=== PATIENT | female | born 1965 | race Hispanic/Latino ===

== ENCOUNTER 2020-05-23 10:34 | Outpatient (CLI) | payer BC ==
[2020-05-24 06:46] LABS: SARS-CoV-2 PCR by NAA Not Detected (NotDetected)
== END 2020-05-23 10:35 | disposition home or self-care (01) ==
LOC: LABBT 10:34
PROVIDERS: ATTEND Ophthalmology Retina Specialist
DX: Z01.812 Encounter for preprocedural laboratory examination (principal); H54.7 Unspecified visual loss; Z20.822 Contact with and (suspected) exposure to COVID-19
CPT/HCPCS: 87635; U0003; U0005

== ENCOUNTER 2020-05-25 09:31 | Day surgery (SDC) | payer BC ==
[2020-05-24 09:11] VITALS: BMI 29.2
[~2020-05-25 09:31] MED LIST: EPINEPHrine 0.3 MG, Dextrose 50% 3 ML in Ophthalmic Irrigation Solution 500 ML IRR SCH; Fentanyl 100 MCG/2 ML VIAL ONE; Midazolam HCl 2 mg/2 ml Vial ONE
[2020-05-25] MEDS ORDERED: Phenylephrine 2.5% Ophth Soln 5 ML BOT ONE (09:51)
[2020-05-25] MEDS ORDERED: Cyclopentolate 1% Opth Drop 2 ML BOT ONE (09:51)
[2020-05-25] MEDS ORDERED: Maxitrol 0.1% Opth Oint 3.5 GM TUBE ONE (10:58)
[2020-05-25] MEDS ORDERED: Bupivacaine PF 0.75% SDV 10 ML ONE (10:58)
[2020-05-25] MEDS ORDERED: CEFAZOLIN 1 GM VIAL ONE (10:58)
[2020-05-25] MEDS ORDERED: Lidocaine 4% PF 5 ML AMP ONE (10:58)
[2020-05-25] MEDS ORDERED: Labetalol HCl 100 MG/20 ML VIAL ONE (10:58)
[2020-05-25] MEDS ORDERED: Lidocaine 1% PF 5 ML VIAL ONE (10:58)
[2020-05-25] MEDS ORDERED: Triamcinolone 40 MG/ML VIAL ONE (10:58)
[2020-05-25] MEDS ORDERED: PROPOFOL 200 MG/20 ML VIAL ONE (10:58)
== END 2020-05-25 13:55 | disposition home or self-care (01) ==
LOC: SDC 09:31
PROVIDERS: ATTEND Ophthalmology Retina Specialist
PROC: 08QF3ZZ Repair Left Retina, Percutaneous Approach (ICD-10-PCS; principal; 2020-05-25)
PROC: 08133J4 Bypass Left Anterior Chamber to Sclera with Synthetic Substitute, Percutaneous Approach (ICD-10-PCS; principal; 2020-05-25)
PROC: 08T53ZZ Resection of Left Vitreous, Percutaneous Approach (ICD-10-PCS; principal; 2020-05-25)
PROC: 08NF3ZZ Release Left Retina, Percutaneous Approach (ICD-10-PCS; principal; 2020-05-25)
DX: H40.2220 Chronic angle-closure glaucoma, left eye, stage unspecified (principal); H43.12 Vitreous hemorrhage, left eye; E11.9 Type 2 diabetes mellitus without complications; Z79.84 Long term (current) use of oral hypoglycemic drugs; Z79.899 Other long term (current) drug therapy
CPT/HCPCS: J0171; J0690; J2250; J2704; J3010; J3301; J3490; L8612